=== PATIENT | female | born 2000 | race Caucasian/White ===

== ENCOUNTER 2023-01-03 00:29 | Inpatient (IN) | payer BC ==
[2023-01-03 01:00] VITALS: BMI 28.7
[2023-01-03] MEDS ORDERED: hydrALAZINE 20 MG/ML VIAL SLOW IVP PRN ×2 (01:58→23:09)
[2023-01-03] MEDS ORDERED: Promethazine HCl 25 MG/ML VIAL IM PRN ×3 (01:58→23:09)
[2023-01-03] MEDS ORDERED: Diphenoxylate HCl/Atropine Tablet PO PRN (01:58)
[2023-01-03] MEDS ORDERED: Ibuprofen 800 MG TAB PO PRN (01:58)
[2023-01-03] MEDS ORDERED: Acetaminophen 500 MG TAB PO PRN (01:58)
[2023-01-03] MEDS ORDERED: fentaNYL 50 mcg/mL 1 mL Vial SLOW IVP PRN (01:58)
[2023-01-03] MEDS ORDERED: Lidocaine 1% (PF) 30 ML VIAL SC PRN ×2 (01:58→04:00)
[2023-01-03] MEDS ORDERED: Misoprostol 200 MCG TAB PR PRN (01:58)
[2023-01-03] MEDS ORDERED: Ondansetron PF 4 MG/2 ML Vial IVP PRN ×3 (01:58→23:09)
[2023-01-03] MEDS ORDERED: Carboprost 250 MCG/ML AMP IM PRN (01:58)
[2023-01-03] MEDS ORDERED: HYDROcodone/Acetaminophen 5/325 mg Tablet PO PRN ×3 (01:58→23:09)
[2023-01-03] MEDS ORDERED: Methylergonovine 0.2 MG/ML VIAL IM PRN (01:58)
[2023-01-03] MEDS ORDERED: Misoprostol 100 MCG TAB PO SCH (02:00)
[2023-01-03] MEDS ORDERED: Lactated Ringer's 1,000 ML IV SCH (02:00)
[2023-01-03] MEDS ORDERED: Oxytocin 30 units/NS 500 ML 500 ML IV SCH ×3 (02:00→04:00)
[2023-01-03 03:27] LABS: Hemoglobin 12.5 g/dL (12.0-15.5); Mean Corpuscular HGB CONC 34.7 g/dL (32.0-36.0); Mean Corpuscular Hemoglobin 29.8 pg (27.0-33.0); Mean Corpuscular Volume 85.7 fl (81.6-98.3); Mean Platelet Volume 12.4 fl (7.4-10.4); Platelet Count 212 10x3/uL (150-450); RBC Distribution Width 12.9 % (11.5-14.5); White Blood Cell (WBC) Count 16.3 10x3/uL (3.5-10.5)
[2023-01-03 03:58] LABS: Syphilis Antibody Nonreactive (Nonreactive); Syphilis Antibody Index 0.07 S/CO (<1.00 Non-Reactive)
[2023-01-03 03:59] LABS: HBSAg Index 0.17 S/CO (0-0.99); Hep B Surf Ag - L&D Non-Reactive S/CO (NonReactive)
[2023-01-03] MEDS ORDERED: Oxytocin 30 units/NS 500 ML 500 ML IVPB SCH (04:00)
[2023-01-03] MEDS ORDERED: Penicillin G Potassium 5 MILL.UNITS in Sodium Chloride 0.9% 100 ML IVPB SCH (04:00)
[2023-01-03] MEDS ORDERED: fentaNYL/Ropivacaine Epidural 100 ML ONE (06:06)
[2023-01-03] MEDS ORDERED: diphenhydrAMINE 50 MG/ML VIAL IVP PRN (06:56)
[2023-01-03] MEDS ORDERED: Moisturizing Cream (Eucerin) 113 GM JAR TOP PRN (06:56)
[2023-01-03] MEDS ORDERED: ePHEDrine Sulfate 50 MG/10 ML VIAL SLOW IVP PRN (06:56)
[2023-01-03] MEDS ORDERED: Naloxone HCl 0.4 mg/ml Vial IVP PRN ×2 (06:56)
[2023-01-03] MEDS ORDERED: Lactated Ringer's 500 ML IV PRN (06:56)
[2023-01-03] MEDS ORDERED: Acetaminophen 325 MG TAB PO PRN (06:56)
[2023-01-03] MEDS ORDERED: Communication Order-Pharmacy FS SCH (07:00)
[2023-01-03] MEDS ORDERED: fentaNYL 2 mcg/Ropivacaine 0.2% Epidural 100 ML CADD EPIDURAL SCH (07:00)
[2023-01-03] MEDS ORDERED: Bupivacaine 0.25% HCL 30 ML VIAL ONE (08:00)
[2023-01-03] MEDS ORDERED: fentaNYL 50 mcg/mL 1 mL Vial ONE (12:16)
[2023-01-03] MEDS: Penicillin G 2.5 MILL.units 2.5 MILL.UNITS in Premix 1 BAG IVPB SCH ×2 (14:14→23:12)
[2023-01-03] MEDS ORDERED: Tranexamic Acid 1,000 MG/10 ML VIAL ONE (16:36)
[2023-01-03] MEDS ORDERED: Oxytocin 30 units/NS 500 ML 500 ML ONE (16:36)
[2023-01-03] MEDS ORDERED: Misoprostol 200 MCG TAB ONE (16:36)
[2023-01-03] MEDS ORDERED: Carboprost 250 MCG/ML AMP ONE (16:37)
[2023-01-03] MEDS ORDERED: Methylergonovine 0.2 MG/ML VIAL ONE (16:37)
[2023-01-03] MEDS ORDERED: Lanolin Ointment 7 GM TUBE TOP PRN (23:09)
[2023-01-03] MEDS ORDERED: Preparation H Ointment 28 GM TUBE PR PRN (23:09)
[2023-01-03] MEDS ORDERED: Bisacodyl 10 MG SUPP PR PRN (23:09)
[2023-01-03] MEDS ORDERED: diphenhydrAMINE 25 MG CAP PO PRN (23:09)
[2023-01-03] MEDS ORDERED: Boostrix 0.5 ML (Tdap) VIAL (>/=7 yrs of age) IM ONE (23:09)
[2023-01-03] MEDS ORDERED: Milk Of Magnesia 30 ML UDCUP PO PRN (23:09)
[2023-01-03] MEDS ORDERED: Benzocaine-Menthol 82.5 ML CAN TOP PRN (23:09)
[2023-01-03] MEDS ORDERED: Ferrous Sulfate 325 MG TAB PO SCH (23:30)
[2023-01-03] MEDS ORDERED: Docusate 100 MG CAP PO SCH (23:30)
[2023-01-03] MEDS ORDERED: Ibuprofen 800 MG TAB PO SCH (23:59)
[2023-01-04 04:31] LABS: Hematocrit 32.5 % (34.9-44.5); Hemoglobin 10.9 g/dL (12.0-15.5)
[2023-01-04] MEDS: Ibuprofen 800 MG TAB PO SCH ×3 (05:20→21:05)
[2023-01-04] MEDS: Prenatal Vitamin 1 TAB PO SCH (08:12)
[2023-01-04] MEDS: Ferrous Sulfate 325 MG TAB PO SCH ×2 (08:13→15:14)
[2023-01-04] MEDS: Docusate 100 MG CAP PO SCH ×2 (08:13→21:05)
[2023-01-05] MEDS: Ibuprofen 800 MG TAB PO SCH ×2 (05:38→13:44)
[2023-01-05] MEDS: Ferrous Sulfate 325 MG TAB PO SCH (07:32)
[2023-01-05 07:51] VITALS: BP 115/56; TEMP 98.3
[2023-01-05] MEDS: Prenatal Vitamin 1 TAB PO SCH (08:24)
[2023-01-05] MEDS: Docusate 100 MG CAP PO SCH (08:24)
== END 2023-01-05 16:45 | disposition home or self-care (01) | DRG 807 ==
LOC: CSHLD/OP 00:29 → CSHLD 03:14 → CSHPP 23:08
PROVIDERS: ADMIT Student in an Organized Health Care Education/Training Program; ATTEND Student in an Organized Health Care Education/Training Program
PROC: 10E0XZZ Delivery of Products of Conception, External Approach (ICD-10-PCS; principal; 2023-01-03)
PROC: 0HQ9XZZ Repair Perineum Skin, External Approach (ICD-10-PCS; 2023-01-03)
DX: O42.02 Full-term premature rupture of membranes, onset of labor within 24 hours of rupture (principal); Z37.0 Single live birth; Z3A.39 39 weeks gestation of pregnancy; O99.824 Streptococcus B carrier state complicating childbirth; O70.0 First degree perineal laceration during delivery
CPT/HCPCS: 36415; 51702; 85014; 85018; 85027; 86780; 86850; 86900; 86901; 87340; 99285; J2001; J2405; J2540; J2590; J3490; S0020